=== PATIENT | female | born 1960 | race Caucasian/White ===

== ENCOUNTER 2022-09-01 11:48 | Emergency (ER) | payer OTHER ==
[~2022-09-01] VITALS: Ht 167.6 cm; Wt 86.2 kg
== END 2022-09-01 11:50 | disposition home or self-care (01) ==
LOC: SED 11:48
DX: I46.9 Cardiac arrest, cause unspecified (principal); E11.9 Type 2 diabetes mellitus without complications; I10 Essential (primary) hypertension; Z79.899 Other long term (current) drug therapy
CPT/HCPCS: 99285